=== PATIENT | female | born 1970 ===

== ENCOUNTER 2022-04-05 14:29 | Emergency (ER) | payer BC, OTHER ==
[~2022-04-05] VITALS: Ht 162.6 cm; Wt 88.6 kg
[2022-04-05 14:41] VITALS: TEMP 98
[2022-04-05 14:52] LABS: COLLECTION METHOD CLEAN CATCH
[2022-04-05 15:17] LABS: PH 6 (5-8); SQUAMOUS EPITHELIAL 0-2 /hpf (0-10); URINE APPEARANCE Clear (CLEAR/HAZY); URINE BACTERIA Rare /hpf (NONE SEEN); URINE BILIRUBIN Negative (NEGATIVE); URINE BLOOD 3+ (NEGATIVE); URINE COLOR Straw (YELLOW); URINE GLUCOSE Negative (NEGATIVE); URINE KETONE Negative (NEGATIVE); URINE LEUKOCYTE ESTERASE Trace (NEGATIVE); URINE NITRATE Negative (NEGATIVE); URINE PROTEIN(semi-quant) Negative (NEGATIVE); URINE RBC 20-50 /hpf (0-2); URINE UROBILINOGEN Negative (NEGATIVE)
[2022-04-05] MEDS ORDERED: CEPHALEXIN500 M1 PO (16:18)
[2022-04-05] MEDS ORDERED: PYRIDIUM 100MG100 MG PO (16:18)
[2022-04-05 16:30] VITALS: BP 113/69; PULSE 85
== END 2022-04-05 16:40 | disposition home or self-care (01) ==
LOC: COL.ER 14:29
DX: N39.0 Urinary tract infection, site not specified (principal); F17.290 Nicotine dependence, other tobacco product, uncomplicated; Z88.1 Allergy status to other antibiotic agents; Z28.310 Unvaccinated for COVID-19